=== PATIENT | female | born 1980 | race Caucasian/White ===

== ENCOUNTER 2017-05-24 12:53 | Outpatient (CLI) | payer OTHER ==
[~2017-05-24] VITALS: Ht 157.5 cm; Wt 88.7 kg
[2017-05-24 13:15] VITALS: Ht 157.5 cm; Wt 88.7 kg
[2017-05-24 13:16] VITALS: BP 118/62; PULSE 81; RESP 18
--- NOTE | 2017-05-24 14:01 | QN ---
Documentation Comment Patient referred for prolonged monitoring. Patient denies any pain and reports good movement. NST Category I ALDO GRIMES MD May 24, 2017 14:00
--- NOTE | 2017-05-24 14:11 | RADRPT ---
PROCEDURE: OB ultrasound for biophysical profile CLINICAL INDICATION: well-being TECHNIQUE: Multiple sonographic images of the pelvis were obtained. Transabdominal views of the g ravid uterus are available for review. The images were reviewed on a PACS workstation. COMPARISON: None FINDINGS: breathing movement = 2/2 tone = 2/2 motion = 2/2 OBDULIO = 2/2 OBDULIO = 9.2 cm Single live intrauterine with cardiac activity of 144 bpm. position is cephal ic. The placenta is fundal. IMPRESSION: 1. Single live intrauterine gestation. 2. Biophysical profile = 8/8. 3. OBDULIO = 9.2 cm. RPTAT: HH .Hyun Mcdonald MD, MD Date Time Electronically viewed and signed by .Hyun Mcdonald MD, on 05/24/2017 14:11 .G/
--- NOTE | 2017-05-24 14:25 | TRIAGE ---
OB Triage Datetime Report Generated by CPN: 05/24/2017 14:24 Datetime: 05/24/2017 13:10 Stage of : OB Triage Maternal Assessment Level of Consciousness: Fully Conscious DTR's/Clonus: DTRs 2+; No Clonus Headache: Denies Blurred Vision: No Respiratory Effort: Unlabored; Regular Rhythm; Equal Expansion Breath Sounds, Left: Clear and Equal Breath Sounds, Right: Clear and Equal Nausea/Vomiting: Denies RUQ Epigastric Pain: Denies Lower Extremities Edema: None Degree: None Upper Extremities Edema: None Degree: None Facial Edema: None Temperature Route: Axillary Fall Risk Assessment History of Falling: (0) No Secondary Diagnosis: (0) No Ambulatory Aid: (0) Bedrest/Nurse Assist IV Therapy: (0) No Gait: (0) Normal/Bedrest/Immobile Mental Status: (0) Oriented to Own Ability Fall Score: 0 Fall Risk Score Definition: No Risk: No action required Labor Evaluation Frequency: occ Monitor Mode: External Heart Rate FHR Baseline Rate: 145 Monitor Mode: External US FHR Baseline Changes: No Baseline Change Variability: Moderate 6-25 bpm Accelerations: 15X15 Decelerations: None Pain Assessment Pain Scale: 0 Pain Presence: None/Denies Datetime: 05/24/2017 13:00 Time of Arrival: 05/24/2017 13:00 EGA: 38.3 Arrived By: Ambulatory Arrived From: Other Unit in Hospital Chief Complaint: mild contractions, 1 late noted during NST on tracing Movement: Present Contractions: Irregular Rupture of Membranes: Denies Vaginal Bleeding: None Vaginal Discharge: Denies Recent Sexual Intercouse: Denies Abdominal Trauma: Not Applicable Patient Complaints: None Time Provider Notified: 05/24/2017 13:30 Initial Plan: MARCOS ray
== END 2017-05-24 14:30 | disposition home or self-care (01) ==
LOC: OBT 12:53 → L-D 12:53 → OBT 14:30
PROVIDERS: ATTEND Obstetrics & Gynecology
DX: O26.893 Other specified pregnancy related conditions, third trimester (principal); Z3A.38 38 weeks gestation of pregnancy; R10.9 Unspecified abdominal pain
CPT/HCPCS: 76818; Z7500; G0463

== ENCOUNTER 2017-05-24 16:05 | Inpatient (IN) | payer OTHER ==
[~2017-05-24] VITALS: Ht 157.5 cm; Wt 90.0 kg
--- NOTE | 2017-05-24 21:00 | NSTRPT ---
NST Information Datetime Report Generated by CPN: 05/24/2017 21:00 Datetime: 05/24/2017 10:46 NST Information EGA: 38.3 Time on Monitor: 05/24/2017 11:12 Time off Monitor: 05/24/2017 12:15 NST Duration (Min): 63 Test and Monitor Explained: Monitor Explained; Test Explained; Verbalized Understanding Pulse: 82 Resp: 18 SBP: 108 DBP: 68 Test Evaluation NST Interventions: Reposition Patient Patient States Movement: Present Contraction Frequency: x3(thight) FHR Baseline : 140 Variability: Moderate 6-25bpm Accelerations: 15X15 Decelerations: Late FHR Category: Category II NST Results: Reactive NST Results: Questionable Comments: To u/s 1226-Report to Dr Odonnell, reported single late decel and recommendation from Dr Pulliam for extend ed monitoring. Orders received. Report to Ramu, triage. 1232-Pt to triage with follow up NST appt, denies any further questions at this time. Comments: To u/s. OBDULIO 10.0cm CEPHALIC. FBS 81. Strip reviewed by Dr. Pulliam. Electronically Signed By E-Signature: with User ID: [id number]
[2017-05-28] MEDS ORDERED: OXYTOCIN 30 UNITS/LR 500 ML BAG IV ONE (07:00)
[2017-05-28] MEDS ORDERED: LACTATED RINGER'S 1,000 ML IV SCH (11:16)
[2017-05-28 11:28] VITALS: Ht 157.5 cm; Wt 90.0 kg
[2017-05-28] MEDS ORDERED: CARBOPROST 250 MCG INJ IM PRN ×2 (11:30→18:00)
[2017-05-28] MEDS ORDERED: METHYLERGONOVINE 0.2 MG INJ IM PRN ×2 (11:30→18:00)
[2017-05-28] MEDS ORDERED: OXYTOCIN 30 UNITS/LR 500 ML IV PRN ×2 (11:30→18:00)
[2017-05-28] MEDS ORDERED: CEFAZOLIN 2 GM/50 ML (PMX) 50 ML IV SCH (11:30)
[2017-05-28] MEDS ORDERED: MISOPROSTOL 200 MCG TAB PR PRN ×2 (11:30→18:00)
[2017-05-28] MEDS ORDERED: OXYTOCIN 30 UNITS/LR 500 ML IV SCH (11:30)
[2017-05-28 11:31] VITALS: BP 114/71; PULSE 74; RESP 18
[2017-05-28] MEDS ORDERED: PRENAT PO (11:33)
[2017-05-28] MEDS ORDERED: GENTAMICIN 80 MG/NS (PMX) 50 ML IVPB ONE (12:00)
[2017-05-28] MEDS ORDERED: CLINDAMYCIN 900 MG/D5W (PMX) 50 ML IV SCH (12:00)
[2017-05-28 12:14] LABS: ADD SCAN DIFF NO
[2017-05-28] MEDS ORDERED: ONDANSETRON 4 MG INJ ONE (12:22)
[2017-05-28] MEDS ORDERED: METOCLOPRAMIDE 10 MG INJ ONE (12:22)
[2017-05-28] MEDS ORDERED: KETOROLAC 30 MG INJ ONE (12:22)
[2017-05-28] MEDS ORDERED: OXYTOCIN 10 UNIT INJ ONE (12:22)
[2017-05-28] MEDS ORDERED: PHENYLephrine (100 MCG/ML) 5ML SYG ONE (12:22)
[2017-05-28] MEDS ORDERED: morphine SULFATE/PF (10 MG/10 ML) INJ ONE (12:22)
[2017-05-28] MEDS ORDERED: CITRIC ACID/SODIUM CITRATE 15 ML CUP PO ONE (12:30)
[2017-05-28] MEDS ORDERED: CITRIC ACID/NA CITRATE 30 ML CUP PO ONE (12:30)
[2017-05-28] MEDS ORDERED: CLINDAMYCIN 900 MG/D5W (PMX) 50 ML IVPB ONE (12:30)
[2017-05-28] MEDS ORDERED: ONDANSETRON 4 MG INJ IV ONE (12:30)
[2017-05-28 12:31] LABS: BASOPHILS % 0.2 % (0.0-2.0); EOSINOPHILS % 0.5 % (0.0-7.0); HEMATOCRIT 33.8 % (37.0-47.0); HEMOGLOBIN 11.3 g/dl (12.0-16.0); LYMPHOCYTES # 1.9 10^3/ul (0.8-2.9); LYMPHOCYTES % 21.7 % (15.0-51.0); MEAN CORPUSCULAR HEMOGLOBIN 29.2 pg (29.0-33.0); MEAN CORPUSCULAR HGB CONC 33.4 g/dl (32.0-37.0); MEAN CORPUSCULAR VOLUME 87.3 fl (82.0-101.0); MEAN PLATELET VOLUME 10.7 fl (7.4-10.4); MONOCYTE # 0.6 10^3/ul (0.3-0.9); MONOCYTES % 6.5 % (0.0-11.0); NEUTROPHIL # 6.2 10^3/ul (1.6-7.5); NEUTROPHILS % 70.8 % (39.0-77.0); PLATELET COUNT 248 10^3/UL (140-415); RED BLOOD COUNT 3.87 10^6/ul (4.20-5.40); RED CELL DISTRIBUTION WIDTH 13.5 % (11.5-14.5); WHITE BLOOD COUNT 8.8 10^3/ul (4.8-10.8)
[2017-05-28 12:48] LABS: INR 1.03; PROTIME 13.5 Sec (12.2-14.2); PT RATIO 1.1
[2017-05-28 12:49] LABS: PARTIAL THROMBOPLASTIN TIME 25.8 Sec (25.0-35.0)
[2017-05-28] MEDS ORDERED: DEXTROSE 5%-LR 1,000 ML IV SCH (14:00)
[2017-05-28] MEDS ORDERED: HYDROCODONE/APAP (5/325) TAB PO PRN (14:30)
[2017-05-28] MEDS ORDERED: HYDROmorphONE 1 MG/ML SYG IV PRN ×2 (14:30)
[2017-05-28] MEDS ORDERED: DIPHENHYDRAMINE 50 MG INJ IV PRN (14:30)
[2017-05-28] MEDS ORDERED: NALOXONE (0.4 MG/ML) INJ IV PRN (14:30)
[2017-05-28] MEDS ORDERED: ONDANSETRON 4 MG INJ IV PRN (14:30)
[2017-05-28] MEDS ORDERED: NALBUPHINE HCL (10 MG/1 ML) INJ IV PRN (14:30)
[2017-05-28] MEDS ORDERED: ACETAMINOPHEN 500 MG TAB PO PRN (14:30)
[2017-05-28] MEDS ORDERED: morphine 2 MG INJ IV PRN (14:30)
[2017-05-28] MEDS ORDERED: morphine 4 MG/ML VIAL IV PRN (14:30)
[2017-05-28] MEDS: LACTATED RINGER'S 1,000 ML IV SCH (17:52)
[2017-05-28] MEDS ORDERED: LANOLIN 7 GM TUBE TOP PRN (18:00)
[2017-05-28] MEDS ORDERED: OXYCODONE/ACETAMINOPHEN (5/325) TAB PO PRN (18:00)
[2017-05-28 18:25] VITALS: BP 122/59; PULSE 79; RESP 16
[2017-05-28] MEDS: OXYTOCIN 30 UNITS/LR 500 ML IV SCH ×2 (18:30→23:18)
[2017-05-28] MEDS: KETOROLAC 30 MG INJ IV PRN (18:41)
[2017-05-28 19:55] VITALS: BP 130/67; PULSE 74; RESP 19
[2017-05-28] MEDS: SENNA/DOCUSATE NA (8.6MG/50MG) TAB PO SCH (21:00)
--- NOTE | 2017-05-28 23:11 | NSTRPT ---
NST Information Datetime Report Generated by CPN: 05/28/2017 23:11 Datetime: 05/26/2017 10:40 NST Information EGA: 38.5 Test Number: 7 Time on Monitor: 05/26/2017 10:53 Time off Monitor: 05/26/2017 11:16 NST Duration (Min): 23 Reason for NST: Diabetes Mellitus; Other Reason for NST Other: A2DM Test and Monitor Explained: Monitor Explained; Test Explained Pulse: 75 Resp: 16 SBP: 103 DBP: 58 Test Evaluation NST Interventions: None Patient States Movement: Present Contraction Frequency: x1 FHR Baseline : 145 Variability: Moderate 6-25bpm Accelerations: 15X15 Decelerations: None FHR Category: Category I NST Results: Reactive Comments: pt to u/s, cephalic, bryce 8.7, fbs 85. Pt Home undelivered with LABOR precautions. Pt rc eduled for c/section 05/28/17. Kick Count instructions reviewed. Pt states understanding. No f urhter quetions asked at this time. Electronically Signed By E-Signature: with User ID: [id number] Datetime: 05/24/2017 10:46 NST Information EGA: 38.3 NST Duration (Min): 63 Datetime: 05/19/2017 10:22 NST Information EGA: 37.5 NST Duration (Min): 31 Datetime: 05/16/2017 10:55 NST Information EGA: 37.2 NST Duration (Min): 24 Datetime: 05/09/2017 11:20 NST Information EGA: 36.2 NST Duration (Min): 36 Datetime: 05/02/2017 10:35 NST Information EGA: 35.2 NST Duration (Min): 24 Datetime: 04/28/2017 14:45 NST Information EGA: 34.5 Datetime: 04/28/2017 14:38 NST Duration (Min): 23
[2017-05-29] VITALS: BP 106/61; PULSE 73; RESP 19
[2017-05-29] MEDS: LACTATED RINGER'S 1,000 ML IV SCH (03:44)
[2017-05-29 04:00] VITALS: BP 106/56; PULSE 75; RESP 19
--- NOTE | 2017-05-29 05:20 | OPPN ---
Date/Time of Note Date/Time of Note DATE: 05/29/17 TIME: 05:20 Post-Anesthesia Notes Post-Anesthesia Note Last documented vital signs Vital Signs Date Time Temp Pulse Resp B/P Pulse Ox O2 Delivery O2 Flow Rate FiO2 05/29/17 04:00 98.9 75 19 106/56 Room Air 05/29/17 03:25 97 21 Activity: WNL Respiratory function: WNL Cardiovascular function: WNL Mental status: Baseline Pain reasonably controlled: Yes Hydration appropriate: Yes Nausea/Vomiting absent: Yes BEN DSOUZA MD May 29, 2017 05:20
[2017-05-29 08:00] VITALS: BP 102/54; PULSE 74; RESP 16
[2017-05-29 08:22] LABS: ADD SCAN DIFF NO
[2017-05-29 08:39] LABS: BASOPHILS % 0.4 % (0.0-2.0); EOSINOPHILS % 0.2 % (0.0-7.0); HEMATOCRIT 31.1 % (37.0-47.0); HEMOGLOBIN 10.1 g/dl (12.0-16.0); LYMPHOCYTES # 1.3 10^3/ul (0.8-2.9); LYMPHOCYTES % 15.9 % (15.0-51.0); MEAN CORPUSCULAR HEMOGLOBIN 28.9 pg (29.0-33.0); MEAN CORPUSCULAR HGB CONC 32.5 g/dl (32.0-37.0); MEAN CORPUSCULAR VOLUME 89.1 fl (82.0-101.0); MEAN PLATELET VOLUME 10.8 fl (7.4-10.4); MONOCYTE # 0.6 10^3/ul (0.3-0.9); MONOCYTES % 7.2 % (0.0-11.0); NEUTROPHIL # 6.3 10^3/ul (1.6-7.5); NEUTROPHILS % 75.8 % (39.0-77.0); PLATELET COUNT 219 10^3/UL (140-415); RED BLOOD COUNT 3.49 10^6/ul (4.20-5.40); RED CELL DISTRIBUTION WIDTH 13.9 % (11.5-14.5); WHITE BLOOD COUNT 8.3 10^3/ul (4.8-10.8)
[2017-05-29] MEDS: SENNA/DOCUSATE NA (8.6MG/50MG) TAB PO SCH ×2 (09:08→20:33)
[2017-05-29] MEDS: KETOROLAC 30 MG INJ IV PRN (09:41)
[2017-05-29 12:00] VITALS: BP 105/57; PULSE 79; RESP 16
[2017-05-29 19:40] VITALS: BP 101/63; PULSE 86; RESP 20
[2017-05-29] MEDS: IBUPROFEN 800 MG TAB PO SCH (21:22)
[2017-05-30 04:00] VITALS: BP 106/59; PULSE 75; RESP 20
[2017-05-30] MEDS: IBUPROFEN 800 MG TAB PO SCH ×3 (05:45→21:56)
--- NOTE | 2017-05-30 07:23 | PN ---
Date/Time of Note Date/Time of Note DATE: 05/30/17 TIME: 07:21 OB Subjective Subjective Subjective Late Entry Note: patient seen and examined last night POD# 1 Patient seen and examined, she is doing well, denies nausea, vomiting, shortness of breath, chest pain, headache. Lochia is appropriate. She has been ambulating without difficulty and tolerating regular diet. Pain is well controlled on current medications. OB Objective Objective Objective General: AAO X 3, comfortable, NAD, appropriate mood and affect Heart: RRR +S1, +S2, no murmurs Lungs: Clear to auscultation (B/L), no rales, rhonchi or wheezing ABD: Soft, non-tender. UFH: 2 cm below umbilicus Incision: Clear, dry, intact. No erythema, drainage or induration Flank: No CVA tenderness (B/L) LE: *Mild edema. No clubbing, cyanosis, thigh or calf tenderness (B/L) OB Assessment/Plan Other plan: POD# 1 S/P delivery. - Afebrile, vital sign stable. - Routine post- care. - Cont current management ARO SHAH May 30, 2017 07:23
[2017-05-30] MEDS: SENNA/DOCUSATE NA (8.6MG/50MG) TAB PO SCH ×2 (09:12→21:56)
[2017-05-30] MEDS: OXYCODONE/ACETAMINOPHEN (5/325) TAB PO PRN ×2 (09:17→16:57)
[2017-05-30 09:31] VITALS: BP 106/64; PULSE 76; RESP 18
--- NOTE | 2017-05-30 14:49 | QN ---
Documentation Comment No complaint Afebrile VSS Abdomen soft Stable Continue present care. ALDO GRIMES MD May 30, 2017 14:48
[2017-05-30 15:40] VITALS: BP 113/70; PULSE 79; RESP 18
[2017-05-30 20:00] VITALS: BP 117/67; PULSE 71; RESP 20
[2017-05-31 03:40] VITALS: BP 105/61; PULSE 74; RESP 20
[2017-05-31] MEDS: IBUPROFEN 800 MG TAB PO SCH ×2 (05:27→14:37)
[2017-05-31 08:00] VITALS: BP 123/71; PULSE 68; RESP 19
[2017-05-31] MEDS ORDERED: DIPHTH/TET/ACEL PERTUSS (ADULT) 0.5 ML VIAL IM* ONE (09:00)
[2017-05-31] MEDS: SENNA/DOCUSATE NA (8.6MG/50MG) TAB PO SCH (09:28)
[2017-05-31] MEDS: OXYCODONE/ACETAMINOPHEN (5/325) TAB PO PRN (11:44)
--- NOTE | 2017-05-31 14:28 | DS ---
Date/Time of Note Date/Time of Note DATE: 05/31/17 TIME: 14:21 Obstetrical Discharge Record Final Diagnosis Final Diagnosis: Term delivered Other Final Diagnosis Previous Voluntary Sterilization Vaginal Delivery Obstetrical Delivery: Bilateral Tubal Ligation Section Section: Repeat Complications Gestational Diabetes Condition on Discharge Physical Assessment Voiding: Yes Bowel Movement: Yes Breast: Soft, non-tender Fundus: Firm Abdomen and Incision: Incision intact Calf Tenderness: No Patient Condition: Stable ALDO GRIMES MD May 31, 2017 14:27
[2017-05-31 15:45] VITALS: BP 125/77; PULSE 65; RESP 18
--- NOTE | 2017-06-01 13:04 | PREOPHP ---
DATE OF ADMISSION: 05/28/2017 HISTORY OF PRESENT ILLNESS: A 36-year-old female, 3, para 2, estimated date of delivery 06/04/2017 at 39 weeks gestation admitted for repeat section. The patient also desires surgical sterilization. PAST MEDICAL HISTORY: Unremarkable. PAST SURGICAL HISTORY: section times 2. ALLERGIES: PENICILLIN. FAMILY HISTORY: Noncontributory. COURSE: Significant for gestational diabetes class A2. PHYSICAL EXAMINATION: VITAL SIGNS: Afebrile, vital signs stable. GENERAL: within normal limits. ABDOMEN: Soft, nontender. Gravid. EXTREMITIES: Normal. NEUROLOGIC: Normal. IMPRESSION: 39-weeks with section times 2 and volunteer sterilization. PLAN: Repeat section and bilateral tubal ligation. Risks, benefits, and of procedure were explained to the patient. The patient has been counseled about all of her contraceptive options including sterilization. It was discussed with the patient that with bilateral tubal ligation there is a chance of failure resulting in ectopic and intrauterine . After counseling, the patient said she understood and gave full consent for the procedures. Dictated By: Nick Odonnell MD /susan/nguyen /Document#: [id number]
== END 2017-05-31 16:20 | disposition home or self-care (01) | DRG 766 ==
LOC: OBT 16:05 → L-D 05-28 10:48 → PP1 05-28 18:20
PROVIDERS: ADMIT Obstetrics & Gynecology; ATTEND Obstetrics & Gynecology
PROC: 0UB70ZZ Excision of Bilateral Fallopian Tubes, Open Approach (ICD-10-PCS; 2017-05-28)
PROC: 10D00Z1 Extraction of Products of Conception, Low, Open Approach (ICD-10-PCS; principal; 2017-05-28 14:00)
DX: O34.211 Maternal care for low transverse scar from previous cesarean delivery (principal); O24.429 Gestational diabetes mellitus in childbirth, unspecified control; Z30.2 Encounter for sterilization; Z3A.39 39 weeks gestation of pregnancy; Z37.0 Single live birth
CPT/HCPCS: 82947; 82962; 85025; 85610; 85730; 86592; 86850; 86900; 86901; 87340; 88302; 90715; 94760; 99464; J1580; J1885; J2274; J2370; J2405; J2590; J2765; J7120; J7121